=== PATIENT | male | born 1935 | race Caucasian/White ===

== ENCOUNTER 2021-10-12 08:33 | Day surgery (SDC) | payer OTHER, BC ==
[2021-10-12 08:24] LABS: Absolute Lymphocytes (CBC) 1.7 K/uL (0.7-4.9); Hematocrit 43.3 % (39.6-49.0); Lymphocytes % 28.3 % (15.3-44.8); MPV 9.6 fL (7.6-11.3); RBC Red Blood Cell Count 4.54 M/uL (4.33-5.43)
[2021-10-12 08:32] LABS: Potassium 4.8 mmol/L (3.5-5.1)
[2021-10-12 08:50] LABS: SARS-CoV-2 Antigen Rapid Res Negative (Negative)
--- NOTE | 2021-10-12 08:53 | RAD REPORT ---
EXAM DESCRIPTION: Suki Alas (2 Views)10/12/2021 8:32 am CLINICAL HISTORY: Preop for hernia repair. Hypertension COMPARISON: None FINDINGS: The lungs appear clear of acute infiltrate. The heart is normal size IMPRESSION: No acute abnormalities displayed
[2021-10-12] MEDS ORDERED: Ringers Lactate 1,000 ML IV ONE (08:57)
[2021-10-12] MEDS: CEFAZOLIN SODIUM 1 GM/VIAL ONE ×2 (09:21→09:45)
[2021-10-12] MEDS ORDERED: propofoL 200 MG/20 ML VIAL IV ONE (09:30)
[2021-10-12] MEDS ORDERED: FENTANYL CITR 100 MCG/2 ML ONE (09:30)
[2021-10-12] MEDS ORDERED: LIDOCAINE 1% MPF 5 ML VIAL ONE (09:30)
[2021-10-12] MEDS ORDERED: MIDAZOLAM HCL 2 MG/2 ML INJ ONE (09:30)
[2021-10-12] MEDS ORDERED: dexAMETHasone 10 MG/ML VIAL ONE (09:55)
[2021-10-12] MEDS ORDERED: KETOROLAC 30 MG/ML INJ ONE (09:55)
[2021-10-12] MEDS ORDERED: ONDANSETRON 4 MG/2 ML VIAL ONE (10:06)
--- NOTE | 2021-10-12 10:20 | P.BOP ---
Preoperative diagnosis: Left inguinal hernia Postoperative diagnosis: same Primary procedure: Open repair of Left inguinal hernia with mesh Grinder: Mckenzie Borja (Mine) Estimated blood loss: <10cc Specimen: sac Findings: LIH Anesthesia: General Complications: None Drain(s): Other Transferred to: Recovery Room Condition: Good
[2021-10-12 10:52] VITALS: O2SAT 99
[2021-10-12 11:00] VITALS: TEMP 97.8
[2021-10-12] MEDS ORDERED: HYDROCODONE/APAP 5/325 MG TAB PO ONE (12:00)
[2021-10-12] MEDS ORDERED: HYDROCODONE/APAP 5/325 MG TAB ONE (12:03)
--- NOTE | 2021-10-12 12:04 | OP ---
Date of Procedure: 10/12/2021 Surgeon: Yan Urrutia MD Store Clerk Cashier: PEDRO Gastelum. Preoperative Diagnosis: Left inguinal hernia. Postoperative Diagnosis: Left inguinal hernia. Procedure: Open repair of left inguinal hernia with mesh Estimated Blood Loss: Less than 10 mL. Specimen: Hernia sac. Anesthesia: General plus local. Finding: Left inguinal hernia. Estimated Blood Loss: Less than 10 mL. Implant: Large mesh, plug and sheath. Indication: This is the case of an 86-year-old patient, who comes to us with a tender left inguinal hernia. Benefits, alternatives and risks of repair with mesh fully explained, which include, but not limited to infection, bleeding, damage to adjacent structures, anesthesia complication, recurrence, AR, and even . He also understands this may not relieve any symptoms. He might need more than one surgical intervention. He understood, signed a consent. The patient also explained the possible use of mesh with pros and cons fully explained and he did consent for the use of mesh. Procedure In Detail: The patient was brought to the operating room, placed in supine position. Anes thesia was done without complication. Abdominal area was prepped and draped in the usual sterile fas hion. Marcaine 0.5% was injected for local anesthetic followed by sharp incision of the skin in the left inguinal region. The incision was carried down until we found Jeannine fascia that lead us into e xternal oblique aponeurosis and that we opened in direction of the fibers to connect to the superfici al inguinal ring. The ilioinguinal nerve and the iliohypogastric nerve were identified, protected be hind the external oblique aponeurosis. Pioneer was placed around the spermatic cord. The hernia sac was identified and dissected free from the spermatic cord structures, protected them at all time. T he hernia sac was then opened. We noticed the patient to have a small amount of omentum present, but easily reduced and looks viable into the abdominal cavity. After that, we twisted the hernia sac an d ligated that twice with 2-0 Prolene. A mesh plug was placed in that area and the deep inguinal rin g secured in place with VersaTack. The mesh was placed in the floor of the canal securing that to th e pubic tubercle and shelving edge of the inguinal ligament, transversalis fascia and the tail looped around the spermatic cord without strangulation. This was fixated with the help of MaryTayulissa ayon. At that moment, I proceeded to bring back the ilioinguinal nerve and iliohypogastric nerve into t he inguinal canal, reconstructed the superficial inguinal ring and closed the external oblique aponeu rosis with 2-0 Prolene making sure the nerves were not included. The area was irrigated. Jeannine fas natanael was closed with 3-0 chromic and skin with vernon. Sponge count and instrument counts correct. The patient tolerated the procedure well. The patient was sent to recovery in stable condition. At the end of the case, testicles were within the scrotum. WHITNEY/NIMESH Voice ID: [id number] Report ID: [id number]
--- NOTE | 2021-10-12 12:04 | DS ---
Diagnosis: Left inguinal hernia, tender. Procedure: Open repair of tender left inguinal hernia with mesh. Disposition: Home. Activity: As tolerated. No heavy lifting. Plan: Followup in my office in 1 week. Call for appointment at [phone]. Keep area dry for 48 hour s, then may shower. Cold compress of the left inguinal area for 24 hours. WHITNEY/NIMESH Voice ID: [id number] Report ID: [id number]
[2021-10-12 13:31] VITALS: BP 149/57
--- NOTE | 2021-10-12 14:38 | EKG ---
Test Date: 2021-10-12 Test Time: 08:05:56 Java Software Developer: LUKE MEASUREMENT RESULTS: Intervals: Rate: 53 WV: 198 QRSD: 92 QT: 412 QTc: 386 [place]: P: 37 WV: 198 QRS: 42 T: 48 INTERPRETIVE STATEMENTS: Sinus bradycardia Otherwise normal ECG No previous ECG available for comparison Electronically Signed On 10-12-21 14:37:21 CDT by Charles Melgar
== END 2021-10-12 13:20 | disposition home or self-care (01) ==
LOC: OR 08:33
PROVIDERS: ATTEND Surgery
PROC: 0YU60JZ Supplement Left Inguinal Region with Synthetic Substitute, Open Approach (ICD-10-PCS; principal; 2021-10-12 09:45)
DX: K40.90 Unilateral inguinal hernia, without obstruction or gangrene, not specified as recurrent (principal)
CPT/HCPCS: 93005; 85025; 80048; 36415; 88302; 71046; 87811; 49505; J2704; J3010; J1100; J7120; J2405; J0690; J2250